=== PATIENT | male | born 1955 ===

== ENCOUNTER 2017-12-13 12:36 | Emergency (ER) | payer MEDICAID, OTHER ==
[2017-12-13 12:36] VITALS: BMI 24.1
[2017-12-13 12:41] VITALS: BP 120/67; PULSE 68; RESP 18; TEMP 97.6; O2SAT 97
--- NOTE | 2017-12-13 13:18 | C.PDOC ---
History Of Present Illness 62 y/o male presents to the ED complaining of right shoulder pain since yesterday. No recent fall or trauma. Patient has tried taking 2 tabs of Motrin at home without any relief of pain. Otherwise he denies any numbness, tingling, weakness, or radiation of pain. Time Seen by Provider: 12/13/17 12:54 Chief Complaint (Nursing): Upper Extremity Problem/Injury History Per: Patient History/Exam Limitations: no limitations Onset/Duration Of Symptoms: Days Current Symptoms Are (Timing): Still Present Past Medical History Reviewed: Historical Data, Nursing Documentation, Vital Signs Vital Signs: Last Vital Signs Temp 97.6 F 12/13/17 12:39 Pulse 68 12/13/17 12:39 Resp 18 12/13/17 12:39 BP 120/67 12/13/17 12:39 Pulse Ox 97 12/13/17 13:41 - [facility] DETOXIFICATION SERVICES FOR SUBSTANCE ABUSE TREATMENT (11/06/15) Family History: States: Unknown Family Hx - Social History Hx Tobacco Use: Yes Hx Alcohol Use: Yes Hx Substance Use: Yes - Immunization History Hx Tetanus Toxoid Vaccination: No Hx Influenza Vaccination: No Hx Pneumococcal Vaccination: No Review Of Systems Constitutional: Negative for: Fever, Chills Musculoskeletal: Positive for: Shoulder Pain Neurological: Negative for: Weakness, Numbness, Other (tingling) Physical Exam - Physical Exam Appears: No Acute Distress Skin: No Rash Head: Atraumatic, Normacephalic Eye(s): bilateral: PERRL, EOMI Oral Mucosa: Moist Neck: No Midline Cervical Tenderness, Paracervical Tenderness (right-sided; paracervical and trapezius tenderness), Supple Extremity: Tenderness (to anterior and superior aspects of right shoulder; no tenderness to elbow, wrist, or hand), No Calf Tenderness, No Swelling, Other ( decreased ROM of right shoulder secondary to pain, full ROM to elbow and wrist) Pulses: Left Radial: Normal, Right Radial: Normal Neurological/Psych: Oriented x3, No Other (gross focal deficit) ED Course And Treatment O2 Sat by Pulse Oximetry: 97 (RA) Pulse Ox Interpretation: Normal - Other Rad x-ray right shoulder X-Ray: Read By Radiologist Interpretation: IMPRESSION: No acute fracture or dislocation. Medical Decision Making Medical Decision Making: Impression: 62 year old with shoulder pain Plan: --Given Toradol 30 mg IM --Provided cold compress --Right shoulder x-ray X-ray reviewed, and is negative. Patient informed of results and provided with follow up instructions. Disposition Counseled Patient/Family Regarding: Studies Performed, Diagnosis, Need For Followup, Rx Given - Disposition Referrals: [facility] [Outside] Disposition: HOME/ ROUTINE Disposition Time: 13:59 Condition: GOOD Additional Instructions: Please take naproxen for pain as prescribed- take with food so it doesn't hurt your stomach. Take muscle relaxant when you are not driving or working since it makes you sleepy. If at home, take three times a day; if working, then take at bedtime only. Warm or cold compresses to shoulder area. Try to avoid strenuous use of area. Follow up in medical clinic. Call for an appointment. Prescriptions: Cyclobenzaprine [Cyclobenzaprine HCl] 5 mg PO Q8 #9 tab Naproxen 500 mg PO BID #20 tab Instructions: Shoulder Sprain (DC) Forms: [facility] ([place]i), General Discharge Instructions, Work Excuse - Clinical Impression Clinical Impression: Sprain of shoulder, right - PA / ENGINEERING SURVEYOR / Resident Statement MD/DO has reviewed & agrees with the documentation as recorded. - Scribe Statement The provider has reviewed the documentation as recorded by the Scribe (Steffany Kaufman) All medical record entries made by the Scribe were at my direction and personally dictated by me. I have reviewed the chart and agree that the record accurately reflects my personal performance of the history, physical exam, medical decision making, and the department course for this patient. I have also personally directed, reviewed, and agree with the discharge instructions and disposition.
--- NOTE | 2017-12-13 13:36 | RAD ---
Date of service: 12/13/2017 PROCEDURE: Radiographs of the Right Shoulder HISTORY: Anterior shoulder pain COMPARISON: No prior. FINDINGS: BONES: Bone alignment and mineralization are normal. There is no acute displaced fracture or bone destruction. JOINTS: Normal. Glenohumeral and acromioclavicular joints preserved. No osteoarthritis. SOFT TISSUES: Normal. OTHER FINDINGS: None. IMPRESSION: No acute fracture or dislocation.
== END 2017-12-13 14:30 | disposition home or self-care (01) ==
LOC: C.ER 12:36
DX: S43.401A Unspecified sprain of right shoulder joint, initial encounter (principal); X58.XXXA Exposure to other specified factors, initial encounter; Z72.0 Tobacco use
CPT/HCPCS: 73030; 96372; 99284; J1885

== ENCOUNTER 2018-06-21 15:42 | Inpatient (IN) | payer OTHER ==
[2018-06-21 15:42] VITALS: BMI 24.1
[2018-06-21] MEDS ORDERED: Vancomycin 1 GM 1 GM/250 ML BAG IVPB STA (18:00)
[2018-06-21] MEDS ORDERED: Vancomycin 1 GM 1 GM/250 ML BAG IVPB ONE (18:13)
[2018-06-21 18:22] LABS: BASO % 0.3 % (0.0-2.0); EOS % 0.1 % (0.0-4.0); HEMOGLOBIN 11.2 g/dL (12.0-18.0); LYMPH # 0.9 K/uL (1.0-4.3); LYMPH % 16.2 % (20.0-40.0); MEAN CELL VOLUME 82.1 fL (80.0-94.0); MEAN CORPUSCULAR HEMOGLOBIN 25.9 pg (27.0-31.0); MEAN CORPUSCULAR HGB CONC 31.6 g/dL (33.0-37.0); MEAN PLATELET VOLUME 8.1 fL (7.2-11.7); MONO # 0.7 K/uL (0.0-0.8); MONO % 12.9 % (0.0-10.0); NEUT # 4.1 K/uL (1.8-7.0); NEUT % 70.5 % (50.0-75.0); NRBC % 0.2 % (0.0-2.0); RBC 4.32 Mil/uL (4.40-5.90); WHITE BLOOD COUNT 5.7 K/uL (4.8-10.8)
--- NOTE | 2018-06-21 18:41 | C.PDOC ---
History Of Present Illness 62 y/o male,w/PMhx of IV heroin abuse, presents to the ER complaining of right forearm swelling and redness which has been present for the past 4 days. Patient states that the his arm has been" increasing in size" over the past few days. Patient reports that he did not seek any medical attention until now.Denies having fever and chills. Time Seen by Provider: 06/21/18 16:07 Chief Complaint (Nursing): Abnormal Skin Integrity History Per: Patient History/Exam Limitations: no limitations Onset/Duration Of Symptoms: Days Current Symptoms Are (Timing): Still Present Severity: Moderate Past Medical History Reviewed: Historical Data, Nursing Documentation, Vital Signs Vital Signs: Last Vital Signs Temp 98.2 F 06/21/18 15:45 Pulse 87 06/21/18 15:45 Resp 20 06/21/18 15:45 BP 126/77 06/21/18 15:45 Pulse Ox 97 06/21/18 15:45 - Medical History PMH: Arthritis, Asthma Surgical History: No Surg Hx - [facility] DETOXIFICATION SERVICES FOR SUBSTANCE ABUSE TREATMENT (11/06/15) Family History: States: No Known Family Hx - Social History Hx Tobacco Use: Yes Hx Alcohol Use: No Hx Substance Use: Yes - Immunization History Hx Tetanus Toxoid Vaccination: No Hx Influenza Vaccination: No Hx Pneumococcal Vaccination: No Review Of Systems Except As Marked, All Systems Reviewed And Found Negative. Constitutional: Negative for: Fever (right forearm swelling and redness), Chills Physical Exam - Physical Exam Appears: Non-toxic, No Acute Distress Skin: Normal Color, Warm, Dry, Other (right forearm: 4x7 cm indurated abscess, warm to touch, erythematous) Head: Atraumatic, Normacephalic Eye(s): bilateral: Normal Inspection Nose: Normal Oral Mucosa: Moist Neck: Supple Chest: Symmetrical Extremity: Normal ROM, Tenderness (right forearm: tenderness to palpation), Capillary Refill (< 2 seconds) Pulses: Right Brachial: Normal Neurological/Psych: Oriented x3, Normal Speech ED Course And Treatment - Laboratory Results Result Diagrams: 06/22/18 07:06 06/22/18 07:06 O2 Sat by Pulse Oximetry: 97 (RA) Pulse Ox Interpretation: Normal Medical Decision Making Medical Decision Making: Plan: --Labs --Toradol IV --Vancomycin IV Updates: 18:40 Case discussed with .Patient has been admitted. Disposition - Disposition Disposition: HOSPITALIZED Disposition Time: 18:30 Condition: STABLE - Clinical Impression Clinical Impression: Abscess of forearm, Opiate dependence - Scribe Statement The provider has reviewed the documentation as recorded by the Aristeoibe Dixie Garcia Provider Attestation: All medical record entries made by the Scribe were at my direction and personally dictated by me. I have reviewed the chart and agree that the record accurately reflects my personal performance of the history, physical exam, medical decision making, and the department course for this patient. I have also personally directed, reviewed, and agree with the discharge instructions and disposition.
[2018-06-21 18:42] LABS: BLOOD UREA NITROGEN 15 mg/dL (9-20); GFR NON-AFRICAN AMERICAN > 60
[2018-06-21 18:43] LABS: ALB/GLOB RATIO 1.2 (1.0-2.1); ALBUMIN 4.2 g/dL (3.5-5.0); ALT/SGPT 23 U/L (21-72); AST/SGOT 23 U/L (17-59); CALCIUM 8.8 mg/dl (8.6-10.4)
--- NOTE | 2018-06-21 19:36 | CP.PCM.HP ---
History of Present Illness - History of Present Illness History of Present Illness: PGY-1 Yenny Gonzalez D.O. H&P for Dr. Higgins's service: Patient is a 62 yo male with a history of IV heroin abuse and HCV who presents with a R forearm abscess. Patient states he first noticed R arm redness and swelling on Monday and it quickly increased in size. No opening/area of drainage or bleeding. Pain severity has increased. He also endorses fever and chills on Monday. Patient states he has had abscesses before on each arm that required I&Ds. He last used heroin yesterday- injected into L arm. Denies injecting his feet. Denies ever going to rehab. PMH: HCV (untreated) PSH: I&D of abscess Meds: none All: Penicillin- rash FH: unknown SH: from [place], rents a room with social security, works at [employer], 10 bags of heroin IV daily, denies alcohol and tobacco use PMD: none Present on Admission - Present on Admission Any Indicators Present on Admission: No History of DVT/PE: No History of Uncontrolled Diabetes: No Urinary Catheter: No Decubitus Ulcer Present: No History Surgical Site Infection Following: None Review of Systems - Constitutional Constitutional: Chills, Fever. absent: Headache, Night Sweats, Weight Loss - EENT Eyes: absent: Change in Vision Ears: absent: Decreased Hearing Nose/Mouth/Throat: absent: Nasal Congestion - Cardiovascular Cardiovascular: absent: Chest Pain, Diaphoresis, Palpitations - Respiratory Respiratory: absent: Cough, Dyspnea - Gastrointestinal Gastrointestinal: absent: Abdominal Pain, Constipation, Diarrhea, Nausea, Vomiting - Genitourinary Genitourinary: absent: Dysuria, Hematuria - Musculoskeletal Musculoskeletal: absent: Abnormal Gait, Numbness, Tingling - Integumentary Integumentary: As Per HPI, Erythema, Swelling. absent: Bleeding Lesions, Rash - Neurological Neurological: absent: Dizziness, Focal Weakness, Sensory Deficit, Weakness - Psychiatric Psychiatric: absent: Anxiety, Depression - Endocrine Endocrine: absent: Fatigue, Palpitations - Hematologic/Lymphatic Hematologic: absent: Easy Bleeding, Easy Bruising, Lymphadenopathy Past Patient History - Infectious Disease Hx of Infectious Diseases: None - Tetanus Immunizations Tetanus Immunization: Unknown - Past Medical History & Family History Past Medical History?: Yes Past Family History: Reviewed and not pertinent - Past Social History Smoking Status: Former Smoker Chewing Tobacco Use: No Cigar Use: No Alcohol: None Drugs: Opiates Home Situation {Lives}: Roommate - PULMONARY Hx Asthma: Yes - MUSCULOSKELETAL/RHEUMATOLOGICAL Hx Arthritis: Yes - PSYCHIATRIC Hx Substance Use: Yes - SURGICAL HISTORY Hx Surgeries: No - ANESTHESIA Hx Anesthesia: No Meds Allergies/Adverse Reactions: Allergies Allergy/AdvReac Type Severity Reaction Status Date / Time Penicillins Allergy Unknown RASH Verified 06/21/18 15:49 Physical Exam - Constitutional Appears: Non-toxic, No Acute Distress - Head Exam Head Exam: ATRAUMATIC, NORMAL INSPECTION - Eye Exam Eye Exam: EOMI, Normal appearance, PERRL - ENT Exam ENT Exam: Mucous Membranes Moist - Neck Exam Neck exam: Positive for: Normal Inspection - Respiratory Exam Respiratory Exam: Clear to Auscultation Bilateral, NORMAL BREATHING PATTERN - Cardiovascular Exam Cardiovascular Exam: RRR, +S1, +S2 - GI/Abdominal Exam GI & Abdominal Exam: Soft. absent: Distended, Tenderness - Extremities Exam Additional comments: R inner forearm 5x5 cm area of fluctuance with surrounding erythema of approx 7 cm, no lesion/opening, very tender to palpation - Neurological Exam Neurological exam: Alert, CN II-XII Intact, Oriented x3 - Psychiatric Exam Psychiatric exam: Normal Affect, Normal Mood - Skin Skin Exam: Dry, Normal Color, Warm Results - Vital Signs Recent Vital Signs: Last Vital Signs Temp 98.2 F 06/21/18 15:45 Pulse 87 06/21/18 15:45 Resp 20 06/21/18 15:45 BP 126/77 06/21/18 15:45 Pulse Ox 97 06/21/18 19:29 - Labs Result Diagrams: 06/21/18 18:12 06/21/18 18:12 Labs: Laboratory Results - last 24 hr 06/21/18 06/21/18 18:12 18:12 WBC 5.7 D RBC 4.32 L Hgb 11.2 L Hct 35.5 MCV 82.1 D MCH 25.9 L MCHC 31.6 L RDW 14.0 Plt Count 213 MPV 8.1 Neut % (Auto) 70.5 Lymph % (Auto) 16.2 L [place] % (Auto) 12.9 H Eos % (Auto) 0.1 Baso % (Auto) 0.3 Neut # (Auto) 4.1 Lymph # (Auto) 0.9 L [place] # (Auto) 0.7 Eos # (Auto) 0.0 Baso # (Auto) 0.0 Sodium 134 Potassium 4.1 Chloride 96 L Carbon Dioxide 29 Anion Gap 13 BUN 15 Creatinine 0.7 L Est GFR ( Amer) > 60 Est GFR (Non-Af Amer) > 60 Random Glucose 98 Calcium 8.8 Total Bilirubin 0.5 AST 23 ALT 23 Alkaline Phosphatase 64 Total Protein 7.8 Albumin 4.2 Globulin 3.6 Albumin/Globulin Ratio 1.2 Assessment & Plan - Assessment and Plan (Free Text) Assessment: Patient is a 62 yo male with a history of IV drug abuse who presents with a R forearm abscess. Plan: Right forearm abscess - Afebrile, no leukocytosis - f/u Blood Cx - Vancomycin 1 g IV daily- started 06/21 - Gentamicin 80 mg IV daily- started 06/21 - Toradol 30 mg IV Q6H PRN - Surgery consulted ([place]) IV heroin use - Encourage cessation - HIV negative 2015, f/u repeat - BAL <10 - UDS pending HCV- contracted from IVDA - Hep C Ab reactive in 2016 - LFTs wnl - Recommend outpatient GI follow-up Ppx: VTE: SCDs GI: Protonix 40 mg PO daily Code status: full code Case discussed with attending, Dr. Higgins.
--- NOTE | 2018-06-21 21:19 | CP.PCM.CON ---
History of Present Illness - History of Present Illness History of Present Illness: Surgery Consult: Dr. Bai Pt is a 62M with PMHx significant for IVDA who presents to with complaints of R arm swelling/redness. Pt states he noted a small pimple on his R arm on Monday that kept getting bigger and more painful as the week progressed. He admits to having a similar episode a few years ago which was treated with drainage and ABX. Pt admits to injecting heroin in that area, however denies any broken needles. States he felt feverish a few days ago. Denies any other associated symptoms. Denies chest pain or SOB. PMHx: IVDA PSHx: I&D R arm abscess SocialHx: admits to IV heroin abuse (10 bags/day for 10+ yrs), denies smoking/EtOH FamHx: non-contributory ALL: PCN Review of Systems - Review of Systems All systems: reviewed and no additional remarkable complaints except (as per HPI) Past Patient History - Infectious Disease Hx of Infectious Diseases: None - Tetanus Immunizations Tetanus Immunization: Unknown - Past Medical History & Family History Past Medical History?: Yes Past Family History: Reviewed and not pertinent - Past Social History Smoking Status: Former Smoker Chewing Tobacco Use: No Cigar Use: No Alcohol: None Drugs: Opiates Home Situation {Lives}: Roommate - PULMONARY Hx Asthma: Yes - MUSCULOSKELETAL/RHEUMATOLOGICAL Hx Arthritis: Yes - PSYCHIATRIC Hx Substance Use: Yes - SURGICAL HISTORY Hx Surgeries: No - ANESTHESIA Hx Anesthesia: No Meds Allergies/Adverse Reactions: Allergies Allergy/AdvReac Type Severity Reaction Status Date / Time Penicillins Allergy Unknown RASH Verified 06/21/18 15:49 - Medications Medications: Current Medications Gentamicin Sulfate 80 mg/ (Sodium Chloride) 102 mls @ 100 mls/hr IVPB Q24H BARBY; Protocol Vancomycin/Sodium Chloride (Vancomycin 1 Gm/Ns 200 Ml) 1 gm in 200 mls @ 133 mls/hr IVPB Q24H BARBY; Protocol Stop: 06/27/18 10:01 Ketorolac Tromethamine (Toradol) 30 mg IVP Q6 PRN PRN Reason: Pain, moderate (4-7) Pantoprazole Sodium (Protonix Ec Tab) 40 mg PO DAILY BARBY Physical Exam - Constitutional Appears: Well, No Acute Distress - Head Exam Head Exam: ATRAUMATIC, NORMOCEPHALIC - Eye Exam Eye Exam: Normal appearance - ENT Exam ENT Exam: Mucous Membranes Moist - Respiratory Exam Respiratory Exam: NORMAL BREATHING PATTERN - Cardiovascular Exam Cardiovascular Exam: RRR - GI/Abdominal Exam GI & Abdominal Exam: Soft. absent: Tenderness - Extremities Exam Additional comments: R forearm with 3x4cm abscess, fluctuant with surrounding induration & erythema. No active drainage - Neurological Exam Neurological exam: Alert, Oriented x3 - Skin Skin Exam: Dry, Warm Results - Vital Signs Recent Vital Signs: Last Vital Signs Temp 98.2 F 06/21/18 15:45 Pulse 87 06/21/18 15:45 Resp 20 06/21/18 15:45 BP 126/77 06/21/18 15:45 Pulse Ox 97 06/21/18 19:29 - Labs Result Diagrams: 06/21/18 18:12 06/21/18 18:12 Labs: Laboratory Results - last 24 hr 06/21/18 06/21/18 06/21/18 18:12 18:12 18:12 WBC 5.7 D RBC 4.32 L Hgb 11.2 L Hct 35.5 MCV 82.1 D MCH 25.9 L MCHC 31.6 L RDW 14.0 Plt Count 213 MPV 8.1 Neut % (Auto) 70.5 Lymph % (Auto) 16.2 L [place] % (Auto) 12.9 H Eos % (Auto) 0.1 Baso % (Auto) 0.3 Neut # (Auto) 4.1 Lymph # (Auto) 0.9 L [place] # (Auto) 0.7 Eos # (Auto) 0.0 Baso # (Auto) 0.0 Sodium 134 Potassium 4.1 Chloride 96 L Carbon Dioxide 29 Anion Gap 13 BUN 15 Creatinine 0.7 L Est GFR ( Amer) > 60 Est GFR (Non-Af Amer) > 60 Random Glucose 98 Calcium 8.8 Total Bilirubin 0.5 AST 23 ALT 23 Alkaline Phosphatase 64 Total Protein 7.8 Albumin 4.2 Globulin 3.6 Albumin/Globulin Ratio 1.2 Alcohol, Quantitative < 10 Assessment & Plan - Assessment and Plan (Free Text) Assessment: 62M with R forearm abscess secondary to IVDA Plan: - cont IV ABX - warm compresses overnight - OR in AM for I&D - Keep NPO past midnight - d/w Dr. Bhumika Duong
[2018-06-22 07:08] LABS: BARBITURATES, UR NEGATIVE (NEGATIVE); BENZODIAZEPINES, UR NEGATIVE (NEGATIVE); PHENCYCLIDINE, UR NEGATIVE (NEGATIVE)
[2018-06-22 07:16] LABS: BASO % 0.3 % (0.0-2.0); EOS % 0.1 % (0.0-4.0); HEMOGLOBIN 11.2 g/dL (12.0-18.0); LYMPH # 0.7 K/uL (1.0-4.3); LYMPH % 11.3 % (20.0-40.0); MEAN CELL VOLUME 81.5 fL (80.0-94.0); MEAN CORPUSCULAR HEMOGLOBIN 26.4 pg (27.0-31.0); MEAN CORPUSCULAR HGB CONC 32.4 g/dL (33.0-37.0); MEAN PLATELET VOLUME 8.1 fL (7.2-11.7); MONO # 0.7 K/uL (0.0-0.8); MONO % 10.7 % (0.0-10.0); NEUT # 4.7 K/uL (1.8-7.0); NEUT % 77.6 % (50.0-75.0); RBC 4.23 Mil/uL (4.40-5.90); RED CELL DISTRIBUTION WIDTH 13.8 % (11.5-14.5); WHITE BLOOD COUNT 6.1 K/uL (4.8-10.8)
[2018-06-22 07:35] LABS: ALB/GLOB RATIO 1.1 (1.0-2.1); ALBUMIN 3.8 g/dL (3.5-5.0); ALT/SGPT 20 U/L (21-72); AST/SGOT 22 U/L (17-59); BLOOD UREA NITROGEN 17 mg/dL (9-20); CALCIUM 8.5 mg/dl (8.6-10.4); GFR NON-AFRICAN AMERICAN > 60
[2018-06-22 07:42] LABS: OPIATES, UR POSITIVE (NEGATIVE)
[2018-06-22 07:43] LABS: INR 1.2; PROTHROMBIN TIME 12.9 SECONDS (9.7-12.2)
[2018-06-22] MEDS ORDERED: Vancomycin 1 gm/NS 200 ml 1 GM/200 ML BAG IVPB SCH (10:00)
[2018-06-22] MEDS ORDERED: Pantoprazole 40 mg EC Tab PO SCH (10:00)
--- NOTE | 2018-06-22 10:51 | CP.PCM.PN ---
Subjective - Date & Time of Evaluation Date of Evaluation: 06/22/18 Time of Evaluation: 10:48 - Subjective Subjective: Debbiekathy Juvencioremigio PGY1 Progress Note for Dr. Higgins Pt was examined at bedside this morning. He complains of pain in the right arm. He denies fever or chills, but admits to nausea which he attributes to withdrawal from heroin. Patient denies vomiting, diarrhea, dysuria. Objective - Vital Signs/Intake and Output Vital Signs (last 24 hours): Temp Pulse Resp BP Pulse Ox 98.0 F 65 20 125/64 95 06/22/18 07:34 06/22/18 07:34 06/22/18 07:34 06/22/18 07:34 06/22/18 07:34 Intake and Output: 06/22/18 06/22/18 06:59 18:59 Intake Total 400 Output Total 300 Balance 100 - Medications Medications: Current Medications Gentamicin Sulfate 80 mg/ (Sodium Chloride) 102 mls @ 100 mls/hr IVPB Q24H BARBY; Protocol Last Admin: 06/21/18 21:51 Dose: 100 mls/hr Vancomycin/Sodium Chloride (Vancomycin 1 Gm/Ns 200 Ml) 1 gm in 200 mls @ 133 mls/hr IVPB Q24H BARBY; Protocol Stop: 06/27/18 10:01 Last Admin: 06/22/18 10:16 Dose: 133 mls/hr Ketorolac Tromethamine (Toradol) 30 mg IVP Q6 PRN PRN Reason: Pain, moderate (4-7) Pantoprazole Sodium (Protonix Ec Tab) 40 mg PO DAILY BARBY Last Admin: 06/22/18 09:40 Dose: Not Given - Labs Labs: 06/22/18 07:06 06/22/18 07:06 PT 12.9 SECONDS (9.7-12.2) H 06/22/18 07:06 INR 1.2 06/22/18 07:06 APTT 33 SECONDS (21-34) 06/22/18 07:06 - Additional Findings Additional findings: - Constitutional Appears: Non-toxic, No Acute Distress - Head Exam Head Exam: ATRAUMATIC, NORMAL INSPECTION - Eye Exam Eye Exam: EOMI, Normal appearance, PERRL - ENT Exam ENT Exam: Mucous Membranes Moist - Neck Exam Neck exam: Positive for: Normal Inspection - Respiratory Exam Respiratory Exam: Clear to Auscultation Bilateral, NORMAL BREATHING PATTERN - Cardiovascular Exam Cardiovascular Exam: RRR, +S1, +S2 - GI/Abdominal Exam GI & Abdominal Exam: Soft. absent: Distended, Tenderness - Extremities Exam Additional comments: R inner forearm 5x5 cm area of fluctuance with surrounding erythema of approx 7 cm, no lesion/opening, very tender to palpation - Neurological Exam Neurological exam: Alert, CN II-XII Intact, Oriented x3 - Psychiatric Exam Psychiatric exam: Normal Affect, Normal Mood - Skin Skin Exam: Dry, Normal Color, Warm Assessment and Plan - Assessment and Plan (Free Text) Assessment: Patient is a 62 yo male with a history of IV drug abuse who presents with a R forearm abscess. Sx planning for I&D today with Dr. Bai. Plan: Right forearm abscess NPO for I&D today with Dr. Bai - Afebrile, no leukocytosis - f/u Blood Cx - Vancomycin 1 g IV daily- started 06/21 - Gentamicin 80 mg IV daily- started 06/21 - Toradol 30 mg IV Q6H PRN - warm compresses to area - Surgery consulted ([facility]) - recs appreciated IV heroin use - Encourage cessation - HIV negative 2016, f/u repeat - BAL <10 - UDS + opiods HCV- contracted from IVDA - Hep C Ab reactive in 2016 - LFTs wnl - Recommend outpatient GI follow-up Ppx: VTE: SCDs GI: Protonix 40 mg PO daily NPO Code status: full code Case discussed with attending, Dr. Higgins.
[2018-06-22] MEDS ORDERED: Clindamycin 600mg/50ml NS 600 MG/50 ML BAG IVPB ONE (13:26)
[2018-06-22] MEDS ORDERED: Midazolam 2 MG/2 ML VIAL ONE (13:42)
[2018-06-22] MEDS ORDERED: Propofol 10 mg/ml Inj (20 ML) ONE (13:43)
[2018-06-22] MEDS ORDERED: Lidocaine Hydrochloride 5 ML INJ ONE (13:44)
[2018-06-22] MEDS ORDERED: Lidocaine 2% MPF (5 ml) Inj ONE (14:02)
--- NOTE | 2018-06-22 14:29 | PCM.SURG1 ---
Surgeon's Initial Post Op Note - Surgeon's Notes Surgeon: MD Bhumika Slice Plug Cutter Operator: Chelo PGY3 Pre-Operative Diagnosis: Right forearm abscess Operative Findings: Right forearm abscess Post-Operative Diagnosis: Right forearm abscess Operation Performed: Incision and drainage of right forearm abscess Specimen/Specimens Removed: culture of Right forearm abscess Estimated Blood Loss: EBL {In ML}: 20 Date of Surgery/Procedure: 06/22/18 Time of Surgery/Procedure: 14:00
[2018-06-22] MEDS ORDERED: HYDROmorphone 1 mg/ml ISec IVP PRN (14:30)
[2018-06-22 14:41] VITALS: O2SAT 100
[2018-06-22] MEDS: HYDROmorphone 0.5 mg/0.5 ml ISec IVP PRN ×2 (14:41→15:08)
[2018-06-22 14:50] VITALS: PULSE 60
[2018-06-22 15:50] VITALS: BP 108/49; RESP 15; TEMP 98.7
--- NOTE | 2018-06-22 22:37 | OP ---
PROCEDURE DATE: 06/22/2018 PREOPERATIVE DIAGNOSIS: Large forearm abscess. POSTOPERATIVE DIAGNOSIS: Large forearm abscess. PROCEDURE CARRIED OUT: Incision and drainage. SURGEON: Jaylen Bai Jr., MD EDITORIAL SPECIALIST: ANESTHESIOLOGIST: Mr. Anderson. INDICATIONS: A 62-year-old man, history of IV drug abuse, injection in the arm, has large abscess in the forearm. The patient was quite upset over the fact that he was not going to the operating room until the schedule permitted, and initially declined surgery, but now he agreed. OPERATIVE FINDINGS: About 50 mL of pus was removed from the right forearm. The wound was irrigated out. ESTIMATED BLOOD LOSS: 20 mL. DESCRIPTION OF PROCEDURE: The patient was given anesthesia as well as intravenous sedation and local by infiltration. An incision was made directly over it. Culture was taken. The wound was packed open after hemostasis obtained and a compressive dressing applied. OPERATION CARRIED OUT: Incision and drainage of large forearm abscess. Jaylen Bai Jr., MD cc: Babatunde Higgins MD
[2018-06-23] MEDS ORDERED: Influenza Vaccine 60 mcg/0.5 mL SYR (4YR UP) IM ONE (10:00)
[2018-06-23] MEDS ORDERED: Pneumococcal 23-Valent Vaccine IM ONE (10:00)
== END 2018-06-22 19:45 | disposition left against medical advice (07) | DRG 277 ==
LOC: C.ER 15:42 → C.9E 18:33 → C.3T 18:56
PROVIDERS: ADMIT Internal Medicine; ATTEND Internal Medicine
PROC: 0X980ZZ Drainage of Right Upper Arm, Open Approach (ICD-10-PCS; principal; 2018-06-21)
DX: L02.413 Cutaneous abscess of right upper limb (principal); F11.23 Opioid dependence with withdrawal; Z87.891 Personal history of nicotine dependence; J45.909 Unspecified asthma, uncomplicated